=== PATIENT | male | born 1945 | race Caucasian/White ===

== ENCOUNTER 2023-10-08 19:07 | Inpatient (IN) | payer MEDICARE ==
[~2023-10-08] VITALS: Ht 165.1 cm; Wt 78.0 kg
[2023-10-08 20:05] LABS: BASOPHILS # (AUTO) 0.1 K/uL (0.0-0.2); BASOPHILS % (AUTO) 0.7 % (0.0-2.0); EOSINOPHILS # (AUTO) 0.4 K/uL (0.0-0.7); EOSINOPHILS % (AUTO) 2.4 % (0.0-6.0); HEMATOCRIT 28 % (39-51); HEMOGLOBIN 9.5 g/dL (13.5-17.5); LYMPHOCYTES % (AUTO) 5.9 % (20.0-44.0); MEAN CORPUSCULAR HEMOGLOBIN 29 PG (26.0-33.0); MEAN CORPUSCULAR HGB CONC 34 g/dl (31.0-36.0); MEAN CORPUSCULAR VOLUME 85 fL (80-96); MONOCYTES # (AUTO) 0.9 K/uL (0.1-1.30); MONOCYTES % (AUTO) 5.6 % (2.0-12.0); NEUTROPHILS # (AUTO) 14.2 K/uL (1.8-8.9); NEUTROPHILS % (AUTO) 85.4 % (43.0-81.0); PLATELET COUNT (AUTO) 197 K/uL (150-450); RED BLOOD CELL COUNT(AUTO) 3.31 MIL/uL (4.5-6.0); RED CELL DISTRIBUTION WIDTH 15.1 % (11.5-15.0); WHITE BLOOD COUNT (AUTO) 16.7 K/uL (4.3-11.0)
[2023-10-08 20:24] LABS: CALCIUM, SERUM 9.1 mg/dL (8.5-10.1); CARBON DIOXIDE 27 mmol/L (21-32); CHLORIDE 98 mmol/L (98-107); CREATININE 2.6 mg/dL (0.6-1.3); GLUCOSE 139 mg/dL (74-106); POTASSIUM 4.6 mmol/L (3.5-5.1); SODIUM SERUM 134 mmol/L (136-145); UREA NITROGEN, BLOOD 38 mg/dL (7-18)
[2023-10-08 20:29] LABS: ALANINE AMINOTRANSFERASE 25 U/L (12-78); ALBUMIN 2.5 g/dL (3.4-5.0); ALKALINE PHOSPHATASE 135 U/L (46-116); ASPARTATE AMINOTRANSFERASE 19 U/L (15-37); BILIRUBIN,DIRECT 0.2 mg/dL (0.0-0.2); BILIRUBIN,TOTAL 0.4 mg/dL (0.2-1.0); TOTAL PROTEIN, SERUM 8.1 g/dL (6.4-8.2)
[2023-10-08] MEDS ORDERED: ASPIRIN 325 MG TABLET ONE (20:56)
[2023-10-08] MEDS: ASPIRIN 325 MG TABLET PO ONE (20:57)
[2023-10-08] MEDS ORDERED: ACETAMINOPHEN 325 MG TABLET PO PRN (21:00)
[2023-10-08] MEDS ORDERED: MAG HYDROX/AL HYDROX/SIMETH 30 ML UDC PO PRN (21:00)
[2023-10-08] MEDS ORDERED: HYDROCODONE/APAP 5/325MG TABLET PO PRN (21:00)
[2023-10-08] MEDS ORDERED: MAGNESIUM HYDROXIDE 30 ML UDC PO PRN (21:00)
[2023-10-08] MEDS ORDERED: ONDANSETRON HCL/PF 4 MG/2 ML VIAL IVP PRN (21:00)
[2023-10-08] MEDS ORDERED: TEMAZEPAM 15 MG CAPSULE PO PRN (21:00)
[2023-10-08] MEDS ORDERED: DEXTROSE 50%-WATER 50 ML DISP.SYRIN IV PRN (21:00)
[2023-10-08] MEDS ORDERED: Z GUARD REMEDY 4 OZ OINT TP PRN (21:00)
[2023-10-08] MEDS: BLOOD SUGAR DIAGNOSTIC 1 EACH STRIP IN SCH (23:02)
[2023-10-08] MEDS: INSULIN REGULAR, HUMAN 100 UNIT/ML 3 ML VIAL SQ PRN (23:05)
[2023-10-08] MEDS: IV NS 0.9% 1,000 ML IV PRN (23:14)
[2023-10-09] VITALS: BP 129/61; TEMP 98.4; O2SAT 98
[2023-10-09 06:00] VITALS: BP 140/63; TEMP 98.1; O2SAT 97
[2023-10-09 07:33] LABS: BASOPHILS # (AUTO) 0.1 K/uL (0.0-0.2); BASOPHILS % (AUTO) 0.4 % (0.0-2.0); EOSINOPHILS # (AUTO) 0.3 K/uL (0.0-0.7); EOSINOPHILS % (AUTO) 2.2 % (0.0-6.0); HEMATOCRIT 27 % (39-51); HEMOGLOBIN 8.9 g/dL (13.5-17.5); LYMPHOCYTES # (AUTO) 0.8 K/uL (0.8-4.8); LYMPHOCYTES % (AUTO) 6.1 % (20.0-44.0); MEAN CORPUSCULAR HEMOGLOBIN 29 PG (26.0-33.0); MEAN CORPUSCULAR HGB CONC 34 g/dl (31.0-36.0); MEAN CORPUSCULAR VOLUME 85 fL (80-96); MONOCYTES # (AUTO) 0.5 K/uL (0.1-1.30); MONOCYTES % (AUTO) 3.8 % (2.0-12.0); NEUTROPHILS # (AUTO) 12.2 K/uL (1.8-8.9); NEUTROPHILS % (AUTO) 87.5 % (43.0-81.0); PLATELET COUNT (AUTO) 190 K/uL (150-450); RED BLOOD CELL COUNT(AUTO) 3.11 MIL/uL (4.5-6.0); RED CELL DISTRIBUTION WIDTH 15.2 % (11.5-15.0); WHITE BLOOD COUNT (AUTO) 13.9 K/uL (4.3-11.0)
[2023-10-09 07:41] LABS: CALCIUM, SERUM 7.8 mg/dL (8.5-10.1); CARBON DIOXIDE 25 mmol/L (21-32); CHLORIDE 100 mmol/L (98-107); CREATININE 2.4 mg/dL (0.6-1.3); GLUCOSE 134 mg/dL (74-106); PHOSPHORUS 3.5 mg/dL (2.5-4.9); POTASSIUM 3.8 mmol/L (3.5-5.1); SODIUM SERUM 135 mmol/L (136-145); UREA NITROGEN, BLOOD 38 mg/dL (7-18)
[2023-10-09 07:59] LABS: CHOLESTEROL 62 mg/dL (<200); HDL CHOLESTEROL 24 mg/dL (40-60); LDL 26 mg/dL (0-99); THYROID STIMULATING HORMONE 4.752 uIU/mL (0.358-3.74); TRIGLYCERIDES 103 mg/dL (30-150)
[2023-10-09 08:00] VITALS: BP 121/63; TEMP 98.3; O2SAT 96
[2023-10-09] MEDS ORDERED: GABA-532 PO (08:18)
[2023-10-09] MEDS ORDERED: DIGO125T PO (08:18)
[2023-10-09] MEDS ORDERED: METO25TA4 PO (08:18)
[2023-10-09] MEDS ORDERED: ATOR80TA PO (08:18)
[2023-10-09] MEDS ORDERED: APIX5TAB PO (08:18)
[2023-10-09] MEDS ORDERED: FURO-144 PO (08:18)
[2023-10-09] MEDS ORDERED: CHOL200059 PO (08:18)
[2023-10-09] MEDS ORDERED: ASPI-1420 PO (08:18)
[2023-10-09] MEDS ORDERED: GLIP10TA11 PO (08:18)
[2023-10-09] MEDS ORDERED: FERR325T28 PO (08:18)
[2023-10-09] MEDS ORDERED: DOCU100C36 PO (08:18)
[2023-10-09] MEDS ORDERED: BISA10SU11 RC (08:18)
[2023-10-09] MEDS ORDERED: POLY17PO4 PO (08:18)
[2023-10-09] MEDS ORDERED: OMEP20CA15 PO (08:18)
[2023-10-09 08:26] LABS: APPEARANCE,URINE CLEAR (CLEAR); BILIRUBIN,URINE NEGATIVE (NEGATIVE); BLOOD, URINE TRACE-INTA Ery/uL (NEGATIVE); COLOR,URINE YELLOW (YELLOW); KETONES,URINE NEGATIVE (NEGATIVE); LEUKOCYTE ESTERASE ,URINE 2+ (NEGATIVE); NITRITE, URINE NEGATIVE (NEGATIVE); PH,URINE 5.5 (5.0-8.0); PROTEIN,URINE NEGATIVE (NEGATIVE); UGLUCOSE NEGATIVE (NEGATIVE); UROBILINOGEN,URINE 0.2 EU/dL (0.2)
[2023-10-09 08:53] LABS: ADD URINE CULTURE YES; BACTERIA,URINE 1+ /HPF (None Seen); RBC,URINE 0-2 /HPF (0-2); SQUAMOUS EPITHELIAL CELL,UR 0-2 /HPF (None Seen)
[2023-10-09 08:54] LABS: MUCUS,URINE Few /LPF (None Seen)
[2023-10-09] MEDS: PANTOPRAZOLE 40 MG TABLET.DR PO SCH (09:01)
[2023-10-09] MEDS: ASPIRIN 81 MG TAB.CHEW PO SCH (09:01)
[2023-10-09] MEDS: ATORVASTATIN 10 MG TABLET PO SCH (09:03)
[2023-10-09] MEDS: HEPARIN SODIUM, PORCINE 5000 UNITS/1 ML VIAL SQ SCH (09:04)
[2023-10-09 09:14] LABS: MAGNESIUM 1.1 mg/dL (1.8-2.4)
[2023-10-09 09:44] LABS: THYROID STIMULATING HORMONE 4.679 uIU/mL (0.358-3.74)
[2023-10-09 12:00] VITALS: BP 119/59; TEMP 98.4; O2SAT 97
[2023-10-09] MEDS: ASPIRIN EC 81 MG TABLET.DR PO SCH (13:30)
[2023-10-09] MEDS: POLYETHYLENE GLYCOL 3350 17 GM POWD.PACK PO SCH (13:30)
[2023-10-09] MEDS ORDERED: BISACODYL SUPP (10 MG) 10 MG/SUPP.RECT SUPP.RECT RC PRN (13:30)
[2023-10-09] MEDS: DOCUSATE SODIUM 100 MG CAPSULE PO SCH (13:30)
[2023-10-09] MEDS: CHOLECALCIFEROL (VITAMIN D 3) 400 UNIT TABLET PO SCH (14:00)
[2023-10-09] MEDS: MAGNESIUM OXIDE 400 MG TABLET PO ONE (14:00)
[2023-10-09] MEDS: DIGOXIN 0.125 MG TABLET PO SCH (14:01)
[2023-10-09] MEDS: METOPROLOL SUCCINATE 25 MG TAB.SR.24H PO SCH (14:01)
[2023-10-09] MEDS: CEFTRIAXONE 1 G in IV D5W 50 ML IV SCH (15:01)
[2023-10-09 16:00] VITALS: BP 130/64; TEMP 98.2; O2SAT 98
[2023-10-09] MEDS: GABAPENTIN 100 MG CAPSULE PO SCH (16:12)
[2023-10-09] MEDS: FERROUS SULFATE (325 MG) 325 MG/TAB TABLET PO SCH (16:12)
[2023-10-09] MEDS: APIXABAN 5 MG TABLET PO SCH (16:13)
[2023-10-09] MEDS: glipiZIDE 10 MG TABLET PO SCH (17:48)
[2023-10-09] MEDS: IV NS 0.9% 1,000 ML IV PRN (18:32)
[2023-10-09 20:00] VITALS: BP 132/64; TEMP 97.7; O2SAT 98
[2023-10-10] VITALS: BP 140/70; TEMP 97.7; O2SAT 97
[2023-10-10 04:00] VITALS: BP 128/66; TEMP 98; O2SAT 98
[2023-10-10] MEDS ORDERED: OMEPRAZOLE 20 MG CAPSULE.DR PO SCH (07:30)
[2023-10-10 08:00] VITALS: BP 143/63; TEMP 98.2; O2SAT 94
[2023-10-10 08:21] LABS: BASOPHILS % (AUTO) 0.3 % (0.0-2.0); EOSINOPHILS # (AUTO) 0.3 K/uL (0.0-0.7); EOSINOPHILS % (AUTO) 2.7 % (0.0-6.0); HEMATOCRIT 25 % (39-51); HEMOGLOBIN 8.4 g/dL (13.5-17.5); LYMPHOCYTES # (AUTO) 0.9 K/uL (0.8-4.8); LYMPHOCYTES % (AUTO) 8.1 % (20.0-44.0); MEAN CORPUSCULAR HEMOGLOBIN 29 PG (26.0-33.0); MEAN CORPUSCULAR HGB CONC 33 g/dl (31.0-36.0); MEAN CORPUSCULAR VOLUME 87 fL (80-96); MONOCYTES # (AUTO) 0.7 K/uL (0.1-1.30); MONOCYTES % (AUTO) 6.1 % (2.0-12.0); NEUTROPHILS # (AUTO) 8.9 K/uL (1.8-8.9); NEUTROPHILS % (AUTO) 82.8 % (43.0-81.0); PLATELET COUNT (AUTO) 185 K/uL (150-450); RED BLOOD CELL COUNT(AUTO) 2.89 MIL/uL (4.5-6.0); RED CELL DISTRIBUTION WIDTH 15.4 % (11.5-15.0); WHITE BLOOD COUNT (AUTO) 10.8 K/uL (4.3-11.0)
[2023-10-10 08:57] LABS: CALCIUM, SERUM 7.7 mg/dL (8.5-10.1); CARBON DIOXIDE 23 mmol/L (21-32); CHLORIDE 107 mmol/L (98-107); CREATININE 2.2 mg/dL (0.6-1.3); GLUCOSE 73 mg/dL (74-106); PHOSPHORUS 3.6 mg/dL (2.5-4.9); POTASSIUM 3.8 mmol/L (3.5-5.1); SODIUM SERUM 142 mmol/L (136-145); UREA NITROGEN, BLOOD 36 mg/dL (7-18)
[2023-10-10 09:06] LABS: MAGNESIUM 1.2 mg/dL (1.8-2.4)
[2023-10-10 09:50] VITALS: BP 143/67
[2023-10-10] MEDS ORDERED: CIPR-262 PO (10:14)
[2023-10-12 10:10] LABS: *SPE A/G RATIO 0.6 (0.7-1.7); *SPE ALBUMIN 2.3 g/dL (2.9-4.4); *SPE ALPHA-1-GLOBULIN 0.3 g/dL (0.0-0.4); *SPE BETA GLOBULIN 0.9 g/dL (0.7-1.3); *SPE GLOBULIN, TOTAL 3.8 g/dL (2.2-3.9); *SPE M-SPIKE Not Observed g/dL (Not Observed); *SPE PROTEIN TOTAL 6.1 g/dL (6.0-8.5); *SPEGAMMA GLOBULIN 1.6 g/dL (0.4-1.8)
== END 2023-10-10 17:54 | disposition home health service (06) | DRG 640 ==
LOC: ER 19:10 → TELE1 21:33 → MEDSG1 10-10 10:38
PROVIDERS: ADMIT Nurse Practitioner Acute Care; ATTEND Nurse Practitioner Acute Care
DX: E86.0 Dehydration (principal); I21.A1 Myocardial infarction type 2; N17.0 Acute kidney failure with tubular necrosis; I13.0 Hypertensive heart and chronic kidney disease with heart failure and stage 1 through stage 4 chronic kidney disease, or unspecified chronic kidney disease; N39.0 Urinary tract infection, site not specified; I50.9 Heart failure, unspecified; N18.9 Chronic kidney disease, unspecified; Z95.2 Presence of prosthetic heart valve; K21.9 Gastro-esophageal reflux disease without esophagitis; E78.5 Hyperlipidemia, unspecified; Z91.81 History of falling; D63.8 Anemia in other chronic diseases classified elsewhere; E11.22 Type 2 diabetes mellitus with diabetic chronic kidney disease; I48.0 Paroxysmal atrial fibrillation; Z79.01 Long term (current) use of anticoagulants; D72.829 Elevated white blood cell count, unspecified; R53.1 Weakness; B96.89 Other specified bacterial agents as the cause of diseases classified elsewhere; E83.42 Hypomagnesemia; Z79.84 Long term (current) use of oral hypoglycemic drugs; Z79.82 Long term (current) use of aspirin; Z79.899 Other long term (current) drug therapy
CPT/HCPCS: 36415; 71045-TC; 76770-TC; 80048-TC; 80061-TC; 80076-TC; 81001; 82728-TC; 82962-TC; 83540-TC; 83735-TC; 84100-TC; 84155; 84165; 84439-TC; 84443-TC; 84484-TC; 85025-TC; 87081-TC; 87086-TC; 93307-TC; 94799-TC; 97110-TC; 97116-TC; 97530-TC; 97535-TC; A4223; G0378; J0696; J1644; J1815; J7030; J7060